=== PATIENT | male | born 1990 | race African-American/Black ===

== ENCOUNTER 2020-10-19 09:24 | Emergency (ER) | payer MEDICAID ==
[~2020-10-19] VITALS: Ht 180.3 cm; Wt 72.0 kg
[2020-10-19] MEDS ORDERED: SODIUM CHLORIDE 0.9% 1,000 ML IV ONE (09:45)
[2020-10-19] MEDS ORDERED: FAMOTIDINE 20MG/2ML VIAL IV STA (09:45)
[2020-10-19] MEDS ORDERED: ONDANSETRON HCL 4MG/2ML INJ IV STA (09:45)
[2020-10-19 10:18] LABS: BASOPHILS % 0.5 % (0.0-2.0); EOSINOPHILS % 0.4 % (0.0-5.0); HEMATOCRIT. 46.8 % (42.0-52.0); HEMOGLOBIN. 15.5 g/dL (14.0-18.0); LYMPHOCYTES % 27.5 % (20.0-50.0); MEAN CORPUSCULAR HEMOGLOBIN 27.5 pg (28.0-32.0); MEAN CORPUSCULAR VOLUME 83.2 fL (80.0-94.0); MEAN PLATELET VOLUME 10.2 fl (7.4-10.4); MONOCYTES % 6.6 % (2.0-8.0); PLATELET 141 x1000/uL (130-400); RED BLOOD CELL COUNT 5.62 mill/uL (4.7-6.1); RED CELL DISTRIBUTION WIDTH 14.6 % (11.6-14.6)
[2020-10-19 10:19] LABS: CLARITY URINE CLEAR (CLEAR); COLOR URINE YELLOW (YELLOW); KETONES URINE NEGATIVE (NEGATIVE); LEUKOCYTE ESTERASE URINE NEGATIVE (NEGATIVE); NITRITE URINE NEGATIVE (NEGATIVE); OCCULT BLOOD URINE NEGATIVE (NEGATIVE); PROTEIN URINE 1+ (NEGATIVE); SPECIFIC GRAVITY URINE 1.026 (1.005-1.030)
[2020-10-19 10:28] LABS: *AMPHETAMINES SCREEN URINE NEGATIVE (NEGATIVE)
[2020-10-19 10:29] LABS: *BARBITURATES SCREEN URINE NEGATIVE (NEGATIVE); *BENZODIAZEPINES SCREEN URINE NEGATIVE (NEGATIVE); *COCAINE SCREEN URINE NEGATIVE (NEGATIVE); CANNABINOID URINE SCREEN NEGATIVE (NEGATIVE); METHADONE URINE SCREEN NEGATIVE (NEGATIVE); OPIATES URINE SCREEN NEGATIVE (NEGATIVE); PHENCYCLIDINE URINE SCREEN NEGATIVE (NEGATIVE)
[2020-10-19] MEDS ORDERED: KETOROLAC 30MG/ML VIAL IV ONE (11:00)
[2020-10-19 11:18] VITALS: BP 135/80
[2020-10-19 11:20] LABS: CHLORIDE 117 mEq/L (98-107)
[2020-10-19 11:54] LABS: INR 1.1; PROTHROMBIN TIME 11.8 sec (9.6-11.0)
[2020-10-19] MEDS ORDERED: ONDA4TAB5 MT (13:07)
[2020-10-19] MEDS ORDERED: OMEP20CA14 MT (13:07)
== END 2020-10-19 13:56 | disposition home or self-care (01) ==
LOC: ER 09:24
DX: R10.13 Epigastric pain (principal); R11.10 Vomiting, unspecified
CPT/HCPCS: 36415; 80053; 80305; 80320; 81003; 83690; 85025; 85610; 86850; 86900; 86901; 96361; 96374; 96375; 99284; J1885; J2405; J3490; J7030; Z7610; G0480